=== PATIENT | female | born 1995 | race Caucasian/White ===

== ENCOUNTER 2018-05-11 04:36 | Emergency (ER) | payer OTHER ==
[~2018-05-11] VITALS: Ht 162.6 cm; Wt 53.1 kg
--- NOTE | 2018-05-11 04:37 | NUR ---
PT TO ER BED 7
[2018-05-11 04:45] VITALS: BP 98/59
[2018-05-11] MEDS ORDERED: NACL 0.9% 1,000 ML IV ONE ×2 (04:54→06:40)
[2018-05-11] MEDS ORDERED: METOCLOPRAMIDE 10 MG/2 ML INJ VIAL IVP ONE (04:55)
[2018-05-11] MEDS ORDERED: diphenhydrAMINE 50 MG/ML VIAL IVP ONE (04:55)
--- NOTE | 2018-05-11 05:00 | NUR ---
22YO F TO ER FOR HEAD PAIN AND SORE THROAT. PT STATE THAT SHE IS 17WKS , WITH N/V X3MO. SORE THROAT X3 DAYS WITH HEAD PAIN. 9/10 PAIN THROBBING. PT DENIES ANY CP, FEVER, COUGH, OR DIARRHEA AT THIS TIME. BS ACTIVE X4. ABD SOFT, ROUND, NON TENDER. PERRLA. AAOX4. LS CLEAR THROUOUT. WILL CONTINUE TO MONITOR. ER MADE AWEARE.
[2018-05-11 05:58] LABS: BASOPHILS % (AUTO) 0.6 % (0.0-2.0); EOSINOPHILS # (AUTO) 0.1 K/uL (0-0.4); EOSINOPHILS % (AUTO) 1.2 % (0.0-4.0); HEMATOCRIT 37.8 % (36-48); HEMOGLOBIN 13.2 g/dL (12.0-16.0); LYMPHOCYTES % (AUTO) 24.8 % (20.5-51.1); MEAN CORPUSCULAR HEMOGLOBIN 32 pg (27-31); MEAN CORPUSCULAR HGB CONC 35 g/dL (33-37); MEAN CORPUSCULAR VOLUME 91.4 fL (80-94); MONOCYTES # (AUTO) 0.8 K/uL (0.8-1.0); MONOCYTES % (AUTO) 9.6 % (1.7-9.3); NEUTROPHILS # (AUTO) 5.2 K/uL (1.8-7.7); NEUTROPHILS % (AUTO) 63.8 % (42.2-75.2); PLATELET COUNT (AUTO) 175 K/uL (140-450); RED BLOOD CELL COUNT(AUTO) 4.13 MIL/uL (4.20-5.40); RED CELL DISTRIBUTION WIDTH 13.3 % (11.6-13.7); WHITE BLOOD COUNT (AUTO) 8.2 K/uL (4.8-10.8)
[2018-05-11 06:00] LABS: BILIRUBIN,URINE NEGATIVE (NEGATIVE); BLOOD, URINE NEGATIVE (NEGATIVE); COLOR,URINE YELLOW (YELLOW); LEUKOCYTE ESTERASE ,URINE NEGATIVE (NEGATIVE); NITRITE, URINE NEGATIVE (NEGATIVE); PH,URINE 7.5 (5.0-9.0); UGLUCOSE NEGATIVE (NEGATIVE)
--- NOTE | 2018-05-11 06:03 | NUR ---
Dr. Hernandez evaluating patient at bedside.
[2018-05-11 06:10] LABS: APPEARANCE,URINE HAZY (CLEAR)
[2018-05-11 06:11] LABS: RBC,URINE 0-5 (RARE) /HPF (0-5); WBC,URINE 0-5 (RARE) /HPF (0-5)
[2018-05-11 06:25] LABS: ANION GAP 13.9 (8-16); CARBON DIOXIDE 25.7 mmol/L (21-32); POTASSIUM 3.6 mmol/L (3.5-5.1)
[2018-05-11 06:26] LABS: ALBUMIN 3.1 g/dL (3.4-5.0); CREATININE 0.6 mg/dL (0.6-1.3); TOTAL BILIRUBIN 0.2 mg/dL (0.0-1.0)
--- NOTE | 2018-05-11 06:30 | NUR ---
PT AMBULATED TO RESTROOM.
--- NOTE | 2018-05-11 07:07 | NUR ---
REPORT GIVEN TO MIRTA CLOUD FOR COINUITY OF CARE
[2018-05-11 07:20] VITALS: BP 105/59
--- NOTE | 2018-05-11 07:21 | NUR ---
Patient discharged with v/s stable. Written and verbal after care instructions given and explained. Patient alert, oriented and verbalized understanding of instructions. Ambulatory with steady gait. All questions addressed prior to discharge. ID band removed. Patient advised to follow up with PMD. Rx of reglan given. Patient educated on indication of medication including possible reaction and side effects. Opportunity to ask questions provided and answered.
== END 2018-05-11 07:21 | disposition home or self-care (01) ==
LOC: MED 04:36
DX: O21.9 Vomiting of pregnancy, unspecified (principal); R51 Headache
CPT/HCPCS: 36415; 80053; 81001; 81025; 83690; 85025; 96361; 96374; 96375; 99284; J1200; J2765; J7030

== ENCOUNTER 2021-10-18 04:15 | Emergency (ER) | payer OTHER ==
[~2021-10-18] VITALS: Ht 162.6 cm; Wt 56.2 kg
[2021-10-18 04:21] VITALS: BP 91/57
[2021-10-18] MEDS ORDERED: LOPERAMIDE 2 MG CAP PO ONE (04:30)
--- NOTE | 2021-10-18 04:35 | NUR ---
PT PRESENTS TO THE ED WITH C/O LUQ ABD PAIN AND DIARRHEA. SOME TENDERNESS NOTED WITH PALPATION. ACTIVE BOWEL SOUNDS ON ALL QUADRANTS. PT REPORTS TAKING PEPTOBISMOL PRIOR TO ED VISIT BUT WITH MINIMAL RELIEF. PATIENT DENIES OTHER MEDICAL HX.
[2021-10-18] MEDS ORDERED: LOPE-289 PO (04:46)
[2021-10-18] MEDS ORDERED: CIPR500T4 PO (04:46)
[2021-10-18 05:13] VITALS: BP 97/47
--- NOTE | 2021-10-18 05:14 | NUR ---
Patient discharged with v/s stable. Written and verbal after care instructions given and explained. Patient alert, oriented and verbalized understanding of instructions. Ambulatory with steady gait. All questions addressed prior to discharge. ID band removed. Patient advised to follow up with PMD. Rx of CIPRO AND LOPERAMIDE given. Patient educated on indication of medication including possible reaction and side effects. Opportunity to ask questions provided and answered.
== END 2021-10-18 05:14 | disposition home or self-care (01) ==
LOC: EDBD 04:15 → MED 04:15
DX: R19.7 Diarrhea, unspecified (principal); Z88.1 Allergy status to other antibiotic agents; Z79.899 Other long term (current) drug therapy
CPT/HCPCS: 99282